=== PATIENT | male | born 1965 | race Caucasian/White ===

== ENCOUNTER 2019-06-26 07:00 | Inpatient (IN) | payer MEDICAID ==
[2019-06-26] MEDS ORDERED: NAPR-1025 PO (19:27)
[2019-06-26] MEDS ORDERED: SENN-2 PO (19:27)
[2019-06-26] MEDS ORDERED: GABA-529 PO (19:27)
[2019-06-26 20:51] VITALS: BP 123/72
[2019-06-26] MEDS ORDERED: HALOPERIDOL 5 MG TABLET PO PRN (21:00)
[2019-06-26] MEDS ORDERED: ZOLPIDEM TARTRATE 10 MG TABLET PO PRN (21:00)
[2019-06-26] MEDS ORDERED: INFLUENZA VIRUS VACCINE QVS 2019-20 (3YR+)/PF 60 MCG/0.5 ML SYRINGE IM ONE (21:30)
[2019-06-26] MEDS ORDERED: IBUPROFEN 400 MG TABLET PO PRN (21:45)
[2019-06-26] MEDS ORDERED: ACETAMINOPHEN 325 MG TABLET PO PRN (21:45)
[2019-06-27 05:59] VITALS: BP 129/72
[2019-06-27] MEDS: NAPROXEN 500 MG TABLET PO SCH ×2 (06:42→16:48)
[2019-06-27] MEDS: SENNA/DOCUSATE SODIUM 8.6-50 MG TABLET PO SCH ×2 (10:11→16:48)
[2019-06-27 11:13] VITALS: BP 100/65
[2019-06-27] MEDS: LORazepam 2 MG TABLET PO PRN (11:33)
[2019-06-27] MEDS ORDERED: DOCUSATE SODIUM 100 MG CAPSULE PO PRN (13:30)
[2019-06-27] MEDS ORDERED: ALBUTEROL SULFATE HFA 90 MCG/PUFF 8 GM INHALER IH PRN (13:30)
[2019-06-27] MEDS ORDERED: LOPERAMIDE HCL 2 MG CAPSULE PO PRN (13:30)
[2019-06-27] MEDS ORDERED: MAG HYDROX/AL HYDROX/SIMETH ES 30 ML SUSPENSION UDCUP PO PRN (13:30)
[2019-06-27] MEDS ORDERED: CloNIDine HCL 0.1 MG TABLET PO PRN (13:30)
[2019-06-27] MEDS ORDERED: ACETAMINOPHEN 325 MG TABLET PO PRN (13:30)
[2019-06-27] MEDS ORDERED: ONDANSETRON HCL 4 MG TABLET PO PRN (13:30)
[2019-06-27] MEDS ORDERED: MAGNESIUM HYDROXIDE SUSPENSION 30 ML UDCUP PO PRN (13:30)
[2019-06-27] MEDS ORDERED: GuaiFENesin/D-METHORPHAN [SUGAR-FREE] 200-20MG/10 ML SYRUP UDCUP PO PRN (13:30)
[2019-06-27] MEDS ORDERED: PETROLATUM,WHITE 28 GM JELLY TP PRN (13:30)
[2019-06-27] MEDS ORDERED: NICOTINE 14 MG/24 HOUR PATCH TD PRN (13:30)
[2019-06-27 16:03] VITALS: BP 106/68
[2019-06-27] MEDS: ESCITALOPRAM OXALATE 10 MG TABLET PO SCH (17:41)
[2019-06-27] MEDS: IBUPROFEN 400 MG TABLET PO PRN (17:42)
[2019-06-27 17:43] VITALS: BP 111/62
[2019-06-28 06:26] VITALS: BP 145/91
[2019-06-28] MEDS: NAPROXEN 500 MG TABLET PO SCH ×2 (06:37→16:40)
[2019-06-28 08:11] VITALS: BP 135/80
[2019-06-28] MEDS: ESCITALOPRAM OXALATE 10 MG TABLET PO SCH (09:06)
[2019-06-28] MEDS: SENNA/DOCUSATE SODIUM 8.6-50 MG TABLET PO SCH ×2 (09:06→16:41)
[2019-06-28] MEDS: NICOTINE 21 MG/24 HOUR PATCH TD SCH (09:14)
[2019-06-28] MEDS: LORazepam 2 MG TABLET PO PRN ×2 (09:24→16:41)
[2019-06-29 06:46] VITALS: BP 144/85
[2019-06-29] MEDS: NAPROXEN 500 MG TABLET PO SCH ×2 (06:52→17:08)
[2019-06-29] MEDS: SENNA/DOCUSATE SODIUM 8.6-50 MG TABLET PO SCH ×2 (09:00→17:00)
[2019-06-29 09:44] VITALS: BP 133/81
[2019-06-29] MEDS: NICOTINE 21 MG/24 HOUR PATCH TD SCH (09:46)
[2019-06-29] MEDS: IBUPROFEN 400 MG TABLET PO PRN (09:58)
[2019-06-29 10:58] VITALS: BP 134/82
[2019-06-29] MEDS: FLUoxetine HCL 20 MG CAPSULE PO SCH (11:24)
[2019-06-29] MEDS: LORazepam 2 MG TABLET PO PRN ×2 (17:08→21:07)
[2019-06-29 17:53] VITALS: BP 103/66
[2019-06-29 20:52] VITALS: BP 103/66
[2019-06-30 05:54] VITALS: BP 102/59
[2019-06-30] MEDS: NAPROXEN 500 MG TABLET PO SCH ×2 (06:46→16:00)
[2019-06-30 08:06] VITALS: BP 109/62
[2019-06-30] MEDS: FLUoxetine HCL 20 MG CAPSULE PO SCH (08:39)
[2019-06-30] MEDS: SENNA/DOCUSATE SODIUM 8.6-50 MG TABLET PO SCH ×2 (08:40→17:00)
[2019-06-30] MEDS: HYDROCORTISONE 1% 30 GM OINTMENT TP SCH (08:52)
[2019-06-30] MEDS: NICOTINE 21 MG/24 HOUR PATCH TD SCH (08:52)
[2019-06-30 17:21] VITALS: BP 132/84
[2019-06-30] MEDS: IBUPROFEN 400 MG TABLET PO PRN (21:11)
[2019-07-01 05:51] VITALS: BP 136/83
[2019-07-01] MEDS: NAPROXEN 500 MG TABLET PO SCH (06:53)
[2019-07-01] MEDS: FLUoxetine HCL 20 MG CAPSULE PO SCH (08:02)
[2019-07-01] MEDS: HYDROCORTISONE 1% 30 GM OINTMENT TP SCH (08:06)
[2019-07-01] MEDS: NICOTINE 21 MG/24 HOUR PATCH TD SCH (08:12)
[2019-07-01] MEDS: SENNA/DOCUSATE SODIUM 8.6-50 MG TABLET PO SCH (08:15)
[2019-07-01] MEDS ORDERED: FLUO-191 PO (12:42)
[2019-07-01] MEDS ORDERED: NAPR-1025 PO (12:52)
[2019-07-01] MEDS ORDERED: SENN-144 PO (13:25)
[2019-07-01] MEDS ORDERED: HYDR28.45 TP (13:28)
== END 2019-07-01 15:11 | disposition home or self-care (01) | DRG 751 ==
LOC: B3A 20:50
DX: F33.2 Major depressive disorder, recurrent severe without psychotic features (principal); R45.851 Suicidal ideations; F14.10 Cocaine abuse, uncomplicated; F15.10 Other stimulant abuse, uncomplicated; M54.9 Dorsalgia, unspecified; F10.10 Alcohol abuse, uncomplicated; F19.10 Other psychoactive substance abuse, uncomplicated; Z59.0 Homelessness; Z91.5 Personal history of self-harm; Z88.0 Allergy status to penicillin; Z28.21 Immunization not carried out because of patient refusal